=== PATIENT | male | born 1965 | race Caucasian/White ===

== ENCOUNTER 2020-09-01 20:57 | Emergency (ER) | payer OTHER ==
[~2020-09-01] VITALS: Ht 180.3 cm; Wt 106.6 kg
[2020-09-01 21:16] VITALS: BP 168/116
== END 2020-09-02 09:00 | disposition left against medical advice (07) ==
LOC: ER 20:57
DX: I10 Essential (primary) hypertension (principal); Z53.21 Procedure and treatment not carried out due to patient leaving prior to being seen by health care provider
CPT/HCPCS: 93005

== ENCOUNTER 2021-05-03 23:27 | Inpatient (IN) | payer OTHER ==
[~2021-05-03] VITALS: Ht 180.3 cm; Wt 98.5 kg
[~2021-05-03 23:27] MED LIST: AMLO-496 PO; APIX5TAB PO; HYDR-4902 PO
[2021-05-04 01:46] LABS: Basophils # (auto) 0.1 10 ^3/uL (0-0.2); Basophils % (auto) 1.5 % (0.0-2.0); Eosinophils # (auto) 0.3 10 ^3/uL (0-0.8); Eosinophils % (auto) 4.8 % (0.0-7.0); Hematocrit 39.1 % (41.0-53.0); Hemoglobin 13.8 g/dL (13.5-17.5); Lymphocytes % (auto) 36.5 % (10.0-50.0); Mean Corpuscular Hemoglobin 28.7 pg (28.0-32.0); Mean Corpuscular Hgb Conc. 35.3 g/dL (32.0-36.0); Mean Corpuscular Volume 81.3 fL (80.0-100.0); Monocytes # (auto) 0.6 10 ^3/uL (0-1.3); Monocytes % (auto) 11.5 % (0.0-12.0); Neutrophils # (auto) 2.4 10 ^3/uL (1.6-8.6); Neutrophils % (auto) 45.7 % (37.0-80.0); Nucleated Red Blood Cells % 0.1 %; Red Blood Cells 4.81 10^6/uL (4.5-5.90); Red Cell Distribution Width 13.5 % (11.8-14.3); White Blood Cell 5.3 10^3/uL (4.4-10.8)
[2021-05-04 02:04] LABS: Albumin 3.2 g/dL (3.4-5.0); BUN/Creatinine Ratio 13.6; Bilirubin, Total 0.2 mg/dL (0.2-1.0)
[2021-05-04 04:54] LABS: Urine Bacteria NONE SEEN /hpf (None Seen); Urine Blood Negative /uL (Negative); Urine Hyaline Cast FEW /lpf (0 - 2); Urine Mucus FEW (None Seen); Urine Specific Gravity 1.029 (1.001-1.035); Urine WBC 3 /hpf (0 - 3)
[2021-05-04] MEDS ORDERED: IOHEXOL 300 MG/ML 100ML BOTTLE IJ ONE ×2 (05:41→07:47)
[2021-05-04] MEDS ORDERED: metroNIDAZOLE 500MG/100ML 100 ML IV ONE (10:45)
[2021-05-04] MEDS ORDERED: cefTRIAXone 1GM/50ML D5W 50 ML IV ONE (10:45)
[2021-05-04] MEDS ORDERED: ONDANSETRON HCL 4 MG/2 ML VIAL IV ONE (11:00)
[2021-05-04] MEDS ORDERED: SODIUM CHLORIDE 0.9% 500 ML IV ONE (11:00)
[2021-05-04] MEDS ORDERED: MORPHINE SULFATE 4 MG/ML SYR/VIAL IV ONE (11:00)
[2021-05-04] MEDS ORDERED: NITROGLYCERIN 0.4 MG SL TAB SL PRN (11:15)
[2021-05-04] MEDS ORDERED: ACETAMINOPHEN 500 MG TAB PO PRN (11:15)
[2021-05-04] MEDS ORDERED: MORPHINE SULFATE INJECTION 2 MG/ML SYRG IV PRN (11:15)
[2021-05-04 11:53] LABS: INR 1.07 (0.9-1.15); Partial Thromboplastin Time 32.2 sec (23.6-33.0)
[2021-05-04] MEDS: D5W/SOD CHLO 0.9% 1,000 ML IV SCH ×2 (11:59→19:53)
[2021-05-04] MEDS ORDERED: GOLYTELY 4L KIT PO ONE (13:00)
[2021-05-04 15:05] LABS: Hematocrit 38.1 % (41.0-53.0); Hemoglobin 13.4 g/dL (13.5-17.5)
[2021-05-04 19:01] LABS: Hematocrit 38.7 % (41.0-53.0); Hemoglobin 13.1 g/dL (13.5-17.5)
[2021-05-04 19:55] VITALS: BP 139/92
[2021-05-04 20:30] VITALS: BP 139/92
[2021-05-04] MEDS: CIPROFLOXACIN 400MG/200ML 200 ML IV SCH (21:17)
[2021-05-04] MEDS: metroNIDAZOLE 500MG/100ML 100 ML IV SCH (22:27)
[2021-05-05 00:55] LABS: Hematocrit 36.2 % (41.0-53.0); Hemoglobin 12.7 g/dL (13.5-17.5)
[2021-05-05] MEDS: D5W/SOD CHLO 0.9% 1,000 ML IV SCH ×3 (04:00→19:15)
[2021-05-05 05:00] VITALS: BP 148/89
[2021-05-05] MEDS: metroNIDAZOLE 500MG/100ML 100 ML IV SCH ×3 (05:55→22:03)
[2021-05-05] MEDS ORDERED: GOLYTELY 4L KIT PO ONE ×2 (06:00→08:30)
[2021-05-05 09:00] VITALS: BP 130/78
[2021-05-05] MEDS ORDERED: SODIUM CHLORIDE LOCK 10 ML ONE (09:10)
[2021-05-05] MEDS ORDERED: diphenhdrAMINE HCL 50 MG/1 ML VL ONE (09:10)
[2021-05-05] MEDS: CIPROFLOXACIN 400MG/200ML 200 ML IV SCH ×2 (10:25→20:41)
[2021-05-05 13:00] VITALS: BP 141/92
[2021-05-05 16:32] VITALS: BP 149/90
[2021-05-05] MEDS: MIDAZOLAM HCL 5 MG/ML-1ML VIAL ONE ×4 (18:25→18:47)
[2021-05-05] MEDS: fentaNYL CITRATE 100 MCG/2 ML VL ONE ×3 (18:25→18:31)
[2021-05-05] MEDS: MORPHINE SULFATE INJECTION 2 MG/ML SYRG IV PRN (20:18)
[2021-05-05 22:00] VITALS: BP 120/63
[2021-05-06] MEDS: D5W/SOD CHLO 0.9% 1,000 ML IV SCH ×3 (03:40→17:59)
[2021-05-06 05:04] VITALS: BP 131/80
[2021-05-06] MEDS: metroNIDAZOLE 500MG/100ML 100 ML IV SCH ×3 (05:44→21:47)
[2021-05-06 05:52] LABS: Basophils # (auto) 0 10 ^3/uL (0-0.2); Basophils % (auto) 0.8 % (0.0-2.0); Eosinophils # (auto) 0.1 10 ^3/uL (0-0.8); Eosinophils % (auto) 3.5 % (0.0-7.0); Hematocrit 35.5 % (41.0-53.0); Hemoglobin 12.3 g/dL (13.5-17.5); Lymphocytes # (auto) 1.3 10 ^3/uL (0.4-5.4); Lymphocytes % (auto) 33.6 % (10.0-50.0); Mean Corpuscular Hemoglobin 28.1 pg (28.0-32.0); Mean Corpuscular Hgb Conc. 34.5 g/dL (32.0-36.0); Mean Corpuscular Volume 81.4 fL (80.0-100.0); Monocytes # (auto) 0.5 10 ^3/uL (0-1.3); Neutrophils # (auto) 1.9 10 ^3/uL (1.6-8.6); Neutrophils % (auto) 50.1 % (37.0-80.0); Red Blood Cells 4.36 10^6/uL (4.5-5.90); Red Cell Distribution Width 13.1 % (11.8-14.3); White Blood Cell 3.8 10^3/uL (4.4-10.8)
[2021-05-06] MEDS ORDERED: GOLYTELY 4L KIT PO ONE (06:00)
[2021-05-06 09:09] VITALS: BP 122/75
[2021-05-06] MEDS: CIPROFLOXACIN 400MG/200ML 200 ML IV SCH ×2 (10:11→20:31)
[2021-05-06 10:47] LABS: INR 1.11 (0.9-1.15)
[2021-05-06] MEDS: MORPHINE SULFATE INJECTION 2 MG/ML SYRG IV PRN ×2 (12:38→20:29)
[2021-05-06 13:00] VITALS: BP 132/93
[2021-05-06 17:02] VITALS: BP 142/90
[2021-05-06 22:00] VITALS: BP 126/81
[2021-05-07] MEDS: D5W/SOD CHLO 0.9% 1,000 ML IV SCH ×2 (03:30→11:15)
[2021-05-07 05:00] VITALS: BP 123/74
[2021-05-07] MEDS: metroNIDAZOLE 500MG/100ML 100 ML IV SCH ×3 (05:53→21:46)
[2021-05-07] MEDS: CIPROFLOXACIN 400MG/200ML 200 ML IV SCH ×2 (08:25→20:02)
[2021-05-07 09:00] VITALS: BP 151/95
[2021-05-07 12:44] VITALS: BP 113/68
[2021-05-07] MEDS: MORPHINE SULFATE INJECTION 2 MG/ML SYRG IV PRN ×2 (15:58→20:28)
[2021-05-07 17:14] VITALS: BP 141/85
[2021-05-07] MEDS: ONDANSETRON HCL 4 MG/2 ML VIAL IV PRN (20:27)
[2021-05-07 22:00] VITALS: BP 154/90
[2021-05-08] MEDS: D5W/SOD CHLO 0.9% 1,000 ML IV SCH ×4 (03:36→20:35)
[2021-05-08 05:00] VITALS: BP 121/74
[2021-05-08] MEDS: metroNIDAZOLE 500MG/100ML 100 ML IV SCH ×3 (05:36→22:06)
[2021-05-08] MEDS: MORPHINE SULFATE INJECTION 2 MG/ML SYRG IV PRN (05:36)
[2021-05-08] MEDS: ONDANSETRON HCL 4 MG/2 ML VIAL IV PRN (05:36)
[2021-05-08 06:05] LABS: Basophils # (auto) 0 10 ^3/uL (0-0.2); Basophils % (auto) 0.9 % (0.0-2.0); Eosinophils # (auto) 0.1 10 ^3/uL (0-0.8); Eosinophils % (auto) 2.7 % (0.0-7.0); Hematocrit 36.7 % (41.0-53.0); Lymphocytes # (auto) 1.4 10 ^3/uL (0.4-5.4); Lymphocytes % (auto) 30.2 % (10.0-50.0); Mean Corpuscular Hemoglobin 28.5 pg (28.0-32.0); Mean Corpuscular Hgb Conc. 35.4 g/dL (32.0-36.0); Mean Corpuscular Volume 80.4 fL (80.0-100.0); Monocytes # (auto) 0.6 10 ^3/uL (0-1.3); Monocytes % (auto) 13.3 % (0.0-12.0); Neutrophils # (auto) 2.5 10 ^3/uL (1.6-8.6); Neutrophils % (auto) 52.9 % (37.0-80.0); Nucleated Red Blood Cells % 0.1 %; Red Blood Cells 4.57 10^6/uL (4.5-5.90); Red Cell Distribution Width 13.3 % (11.8-14.3); White Blood Cell 4.7 10^3/uL (4.4-10.8)
[2021-05-08 06:21] LABS: INR 1.13 (0.9-1.15); Partial Thromboplastin Time 31.6 sec (23.6-33.0)
[2021-05-08 06:23] LABS: Potassium 3.5 mmol/L (3.5-5.1)
[2021-05-08 06:28] LABS: BUN/Creatinine Ratio 3.3; Calcium 8.5 mg/dL (8.5-10.1)
[2021-05-08] MEDS: CIPROFLOXACIN 400MG/200ML 200 ML IV SCH ×2 (07:22→20:35)
[2021-05-08 09:00] VITALS: BP 124/84
[2021-05-08 13:00] VITALS: BP 128/82
[2021-05-08 17:00] VITALS: BP_SYST 128; BP_SYST 136; BP_DIAS 70; BP_DIAS 77
[2021-05-08 22:00] VITALS: BP 128/72
[2021-05-09] MEDS: D5W/SOD CHLO 0.9% 1,000 ML IV SCH ×4 (03:54→19:28)
[2021-05-09 05:00] VITALS: BP 142/84
[2021-05-09] MEDS: metroNIDAZOLE 500MG/100ML 100 ML IV SCH ×3 (05:31→21:56)
[2021-05-09] MEDS: CIPROFLOXACIN 400MG/200ML 200 ML IV SCH ×2 (08:01→20:51)
[2021-05-09 09:11] VITALS: BP 129/69
[2021-05-09] MEDS ORDERED: LIDOCAINE W/ EPINEPHRINE 1% 20ML VIAL ONE (12:43)
[2021-05-09] MEDS ORDERED: BUPIVACAINE 0.25% INJ 50ML VIAL ONE (12:43)
[2021-05-09] MEDS ORDERED: SUCCINYLCHOLINE CHLORIDE 20 MG/ML 10ML VIAL IV ONE (12:46)
[2021-05-09] MEDS ORDERED: fentaNYL CITRATE 100 MCG/2 ML VL ONE (12:47)
[2021-05-09] MEDS ORDERED: MIDAZOLAM HCL 2MG/2ML 2ml VIAL (1mg/ml) ONE (12:47)
[2021-05-09] MEDS ORDERED: PROPOFOL 10 MG/ML 20 ML IV ONE ×2 (12:51→14:16)
[2021-05-09] MEDS ORDERED: LIDOCAINE 2% (LOCAL ANESTH.) PF 5ml SDV ONE (12:51)
[2021-05-09] MEDS ORDERED: ONDANSETRON HCL 4 MG/2 ML VIAL ONE (12:51)
[2021-05-09 13:00] VITALS: BP 133/87
[2021-05-09] MEDS ORDERED: GELATIN 1 SPONGE SIZE 50 TOP ONE (13:23)
[2021-05-09] MEDS ORDERED: THROMBIN (BOVINE) 5000 UNIT SOL VIAL ONE (13:24)
[2021-05-09] MEDS ORDERED: ONDANSETRON HCL 4 MG/2 ML VIAL IV PRN (14:30)
[2021-05-09] MEDS ORDERED: HYDROmorphone HCL 2 MG/ML VL IV PRN ×2 (14:30)
[2021-05-09] MEDS: HYDROmorphone HCL 2 MG/ML VL IV PRN ×3 (15:25→22:30)
[2021-05-09 17:00] VITALS: BP 120/80
[2021-05-09 22:00] VITALS: BP 144/90
[2021-05-10] MEDS: HYDROcodone-ACET 5/325MG TAB PO PRN ×5 (00:14→15:52)
[2021-05-10] MEDS: ONDANSETRON HCL 4 MG/2 ML VIAL IV PRN ×2 (01:47→04:50)
[2021-05-10] MEDS: HYDROmorphone HCL 2 MG/ML VL IV PRN ×3 (01:47→09:20)
[2021-05-10 04:59] VITALS: BP 146/99
[2021-05-10] MEDS: metroNIDAZOLE 500MG/100ML 100 ML IV SCH ×2 (05:30→13:33)
[2021-05-10] MEDS: D5W/SOD CHLO 0.9% 1,000 ML IV SCH (06:18)
[2021-05-10 08:00] VITALS: BP 142/90
[2021-05-10] MEDS: CIPROFLOXACIN 400MG/200ML 200 ML IV SCH (09:00)
[2021-05-10 12:00] VITALS: BP 145/78
[2021-05-10 16:00] VITALS: BP 148/98
[2021-05-10 17:43] VITALS: BP 148/98
== END 2021-05-10 18:45 | disposition home or self-care (01) | DRG 349 ==
LOC: ER 23:27 → TELE 05-04 11:10 → TELE-CENTR 05-04 19:55 → CENTRAL 05-10 16:24 → TELE-CENTR 05-10 16:28
PROVIDERS: ADMIT Hospitalist; ATTEND Hospitalist
PROC: 0DBP8ZX Excision of Rectum, Via Natural or Artificial Opening Endoscopic, Diagnostic (ICD-10-PCS; principal; 2021-05-05 18:16)
PROC: 06BY0ZC Excision of Hemorrhoidal Plexus, Open Approach (ICD-10-PCS; 2021-05-09)
DX: K64.8 Other hemorrhoids (principal); I10 Essential (primary) hypertension; Z20.822 Contact with and (suspected) exposure to COVID-19; Z53.9 Procedure and treatment not carried out, unspecified reason; Z88.8 Allergy status to other drugs, medicaments and biological substances
CPT/HCPCS: 36415; 45380; 71045; 74177; 80048; 80053; 81001; 83690; 85014; 85018; 85025; 85610; 85730; 86850; 86900; 86901; 87045; 87426; 87427; 93005; 96365; 96368; 96375; G0378; J0330; J0696; J2001; J2250; J2405; J2704; J3490; J7042

== ENCOUNTER 2021-06-13 06:19 | Inpatient (IN) | payer OTHER ==
[~2021-06-13] VITALS: Ht 180.3 cm; Wt 106.9 kg
[~2021-06-13 06:19] MED LIST changes: -APIX5TAB PO
[2021-06-13] MEDS ORDERED: ceFAZolin 1GM/50ML 100 ML IV ONE (06:37)
[2021-06-13] MEDS ORDERED: TRANEXAMIC ACID 20 ML ONE (07:11)
[2021-06-13] MEDS ORDERED: EPINEPHrine HCL 1 MG/1 ML AMP ONE (07:11)
[2021-06-13] MEDS ORDERED: TETRACAINE 1% INJ 2 ML VIAL IJ ONE (07:11)
[2021-06-13] MEDS ORDERED: VANCOMYCIN HCL 1000 MG VL ONE (07:21)
[2021-06-13] MEDS ORDERED: MEPERIDINE HCL (25 MG/ML) 1ML VIAL ONE (07:25)
[2021-06-13] MEDS ORDERED: MIDAZOLAM HCL 2MG/2ML 2ml VIAL (1mg/ml) ONE ×2 (07:25→07:27)
[2021-06-13] MEDS ORDERED: fentaNYL CITRATE 100 MCG/2 ML VL ONE (07:25)
[2021-06-13] MEDS ORDERED: DexAMETHasone SOD PHOS 10MG/1ML VIAL INJ ONE (07:27)
[2021-06-13] MEDS ORDERED: PROPOFOL 10 MG/ML 20 ML IV ONE (07:27)
[2021-06-13] MEDS ORDERED: ePHEDrine SULFATE 50 MG/ML AMP IV PRN (08:45)
[2021-06-13] MEDS ORDERED: MIDAZOLAM HCL 2MG/2ML 2ml VIAL (1mg/ml) IV PRN (08:45)
[2021-06-13] MEDS ORDERED: ONDANSETRON HCL 4 MG/2 ML VIAL IV PRN (08:45)
[2021-06-13] MEDS ORDERED: LABETALOL HCL 5 MG/ML 4ML SYRINGE IV PRN (08:45)
[2021-06-13] MEDS ORDERED: HYDROmorphone HCL 2 MG/ML VL IV PRN (08:45)
[2021-06-13] MEDS ORDERED: MORPHINE SULFATE 4 MG/ML SYR/VIAL IV PRN (08:45)
[2021-06-13] MEDS ORDERED: MORPHINE SULFATE INJECTION 2 MG/ML SYRG IV PRN (09:45)
[2021-06-13] MEDS ORDERED: NITROGLYCERIN 0.4 MG SL TAB SL PRN (09:45)
[2021-06-13] MEDS ORDERED: ACETAMINOPHEN 325 MG TAB PO PRN (10:00)
[2021-06-13] MEDS: D5W/LACTATED RINGERS 1,000 ML IV SCH ×2 (10:17→20:00)
[2021-06-13] MEDS: PREGABALIN 25 MG CAP PO SCH ×3 (10:20→21:31)
[2021-06-13] MEDS: ACETAMINOPHEN 325 MG TAB PO SCH ×3 (12:00→22:50)
[2021-06-13] MEDS: KETOROLAC TROMETH 30 MG/ML 1ML VIAL IV SCH ×3 (12:00→22:49)
[2021-06-13 13:16] VITALS: BP 143/94
[2021-06-13] MEDS: oxyCODONE HCL 5MG TAB PO PRN ×3 (13:38→20:48)
[2021-06-13] MEDS: HYDROmorphone HCL 2 MG/ML VL IV PRN ×2 (13:45→18:34)
[2021-06-13] MEDS: ceFAZolin 2 GM in D5W 5% 100 ML IV SCH ×2 (14:39→21:30)
[2021-06-13 17:09] VITALS: BP 161/107
[2021-06-13] MEDS ORDERED: hydrALAZINE HCL 20 MG/ML VL IV PRN (18:45)
[2021-06-13] MEDS ORDERED: HYDROcodone-ACET 5/325MG TAB PO SCH (18:45)
[2021-06-13 22:00] VITALS: BP 156/100
[2021-06-14] MEDS: oxyCODONE HCL 5MG TAB PO PRN ×4 (02:20→15:35)
[2021-06-14 05:00] VITALS: BP 137/87
[2021-06-14] MEDS: D5W/LACTATED RINGERS 1,000 ML IV SCH ×2 (06:14→16:00)
[2021-06-14] MEDS: ACETAMINOPHEN 325 MG TAB PO SCH ×2 (06:40→12:53)
[2021-06-14] MEDS: KETOROLAC TROMETH 30 MG/ML 1ML VIAL IV SCH ×2 (06:40→12:52)
[2021-06-14] MEDS: PREGABALIN 25 MG CAP PO SCH (08:22)
[2021-06-14 09:00] VITALS: BP 148/88
[2021-06-14] MEDS ORDERED: ENOXAPARIN SOD 30 MG/0.3 ML SYRINGE SC SCH (10:00)
[2021-06-14] MEDS ORDERED: amLODIPine BESYLATE 5 MG TAB PO SCH (10:00)
[2021-06-14 13:00] VITALS: BP 142/88
[2021-06-14 16:00] VITALS: BP 142/88
== END 2021-06-14 16:47 | disposition home or self-care (01) | DRG 489 ==
LOC: SUR 06:19 → OVERFLOW 09:38 → WEST WING 12:25
PROVIDERS: ADMIT Orthopaedic Surgery; ATTEND Orthopaedic Surgery
PROC: 0SUV09Z Supplement Right Knee Joint, Tibial Surface with Liner, Open Approach (ICD-10-PCS; 2021-06-13)
PROC: 0SPC09Z Removal of Liner from Right Knee Joint, Open Approach (ICD-10-PCS; principal; 2021-06-13 07:34)
DX: T84.022A Instability of internal right knee prosthesis, initial encounter (principal); Y83.8 Other surgical procedures as the cause of abnormal reaction of the patient, or of later complication, without mention of misadventure at the time of the procedure; Y92.098 Other place in other non-institutional residence as the place of occurrence of the external cause; Z20.822 Contact with and (suspected) exposure to COVID-19; Z96.651 Presence of right artificial knee joint
CPT/HCPCS: 73560; 87081; G0378; J0171; J0690; J1100; J1885; J2250; J2405; J2704; J7060

== ENCOUNTER 2021-07-11 06:30 | Inpatient (IN) | payer OTHER ==
[~2021-07-11] VITALS: Ht 180.3 cm; Wt 96.2 kg
[2021-07-11] MEDS ORDERED: CLINDAMYCIN 900MG IV 50 ML IV ONE (07:13)
[2021-07-11] MEDS ORDERED: fentaNYL CITRATE 5 ML ONE (07:16)
[2021-07-11] MEDS ORDERED: MIDAZOLAM HCL 2MG/2ML 2ml VIAL (1mg/ml) ONE (07:16)
[2021-07-11] MEDS ORDERED: NITROGLYCERIN 0.4 MG SL TAB SL PRN (08:45)
[2021-07-11] MEDS ORDERED: ACETAMINOPHEN 325 MG TAB PO PRN (08:45)
[2021-07-11] MEDS ORDERED: ONDANSETRON HCL 4 MG/2 ML VIAL IV PRN (08:45)
[2021-07-11] MEDS ORDERED: oxyCODONE HCL 5MG TAB PO PRN ×2 (08:45)
[2021-07-11] MEDS ORDERED: MORPHINE SULFATE INJECTION 2 MG/ML SYRG IV PRN (08:45)
[2021-07-11] MEDS: HYDROmorphone HCL 2 MG/ML VL IV PRN ×6 (08:51→21:01)
[2021-07-11] MEDS ORDERED: ENOXAPARIN SOD 30 MG/0.3 ML SYRINGE SC SCH (10:00)
[2021-07-11] MEDS: D5W/LACTATED RINGERS 1,000 ML IV SCH ×2 (10:00→18:45)
[2021-07-11] MEDS: amLODIPine BESYLATE 5 MG TAB PO SCH (10:25)
[2021-07-11] MEDS: KETOROLAC TROMETH 30 MG/ML 1ML VIAL IV SCH ×3 (12:07→23:37)
[2021-07-11] MEDS: ACETAMINOPHEN 325 MG TAB PO SCH ×3 (12:20→23:38)
[2021-07-11] MEDS ORDERED: CEFOXITIN IV ONE (13:43)
[2021-07-11] MEDS: ceFAZolin 2 GM in D5W 5% 100 ML IV SCH ×2 (13:50→21:31)
[2021-07-11] MEDS ORDERED: ceFAZolin 1GM/50ML 100 ML IV ONE (14:03)
[2021-07-11 15:45] VITALS: BP 145/91
[2021-07-11 22:00] VITALS: BP 137/83
[2021-07-12] MEDS: HYDROmorphone HCL 2 MG/ML VL IV PRN ×3 (04:13→20:32)
[2021-07-12] MEDS: D5W/LACTATED RINGERS 1,000 ML IV SCH ×2 (04:43→14:45)
[2021-07-12 05:00] VITALS: BP 155/99
[2021-07-12] MEDS: KETOROLAC TROMETH 30 MG/ML 1ML VIAL IV SCH ×3 (06:03→18:05)
[2021-07-12] MEDS: ACETAMINOPHEN 325 MG TAB PO SCH ×3 (06:03→18:05)
[2021-07-12] MEDS: ceFAZolin 2 GM in D5W 5% 100 ML IV SCH ×3 (06:04→21:29)
[2021-07-12 09:00] VITALS: BP 131/90
[2021-07-12] MEDS: amLODIPine BESYLATE 5 MG TAB PO SCH (10:23)
[2021-07-12] MEDS: ENOXAPARIN SOD 30 MG/0.3 ML SYRINGE SC SCH ×2 (10:24→21:29)
[2021-07-12 13:00] VITALS: BP 130/82
[2021-07-12 16:53] VITALS: BP 136/83
[2021-07-12 22:11] VITALS: BP 139/79
[2021-07-13] MEDS: ACETAMINOPHEN 325 MG TAB PO SCH ×3 (01:03→12:00)
[2021-07-13] MEDS: KETOROLAC TROMETH 30 MG/ML 1ML VIAL IV SCH ×3 (01:03→12:00)
[2021-07-13] MEDS: D5W/LACTATED RINGERS 1,000 ML IV SCH ×2 (01:04→10:45)
[2021-07-13 05:13] VITALS: BP 143/90
[2021-07-13] MEDS: ceFAZolin 2 GM in D5W 5% 100 ML IV SCH ×2 (06:10→14:00)
[2021-07-13 08:34] VITALS: BP 146/91
[2021-07-13] MEDS: amLODIPine BESYLATE 5 MG TAB PO SCH (09:09)
[2021-07-13] MEDS: ENOXAPARIN SOD 30 MG/0.3 ML SYRINGE SC SCH (09:10)
[2021-07-13 12:41] VITALS: BP 144/86
[2021-07-13 12:58] VITALS: BP 144/86
== END 2021-07-13 16:30 | disposition home or self-care (01) | DRG 489 ==
LOC: SUR 06:30 → OVERFLOW 08:43 → WEST WING 15:36
PROVIDERS: ADMIT Orthopaedic Surgery; ATTEND Orthopaedic Surgery
PROC: 0S9C0ZZ Drainage of Right Knee Joint, Open Approach (ICD-10-PCS; principal; 2021-07-11 07:36)
DX: M25.461 Effusion, right knee (principal); I10 Essential (primary) hypertension; Z96.651 Presence of right artificial knee joint; Z20.822 Contact with and (suspected) exposure to COVID-19
CPT/HCPCS: 36415; 85652; 86141; 87070; 87075; 87205; 93970; G0378; J0690; J0694; J1885; J2250; J3490; J7060

== ENCOUNTER 2022-10-30 06:22 | Inpatient (IN) | payer OTHER ==
[~2022-10-30] VITALS: Ht 180.3 cm; Wt 114.0 kg
[~2022-10-30 06:22] MED LIST changes: -HYDR-4902 PO
[2022-10-30] MEDS ORDERED: VANCOMYCIN HCL 1000 MG VL ONE (06:47)
[2022-10-30] MEDS ORDERED: CLINDAMYCIN 600MG IV 0 ML IV ONE (07:04)
[2022-10-30] MEDS ORDERED: ceFAZolin 1GM/50ML 100 ML IV ONE (07:19)
[2022-10-30] MEDS ORDERED: MIDAZOLAM HCL 2MG/2ML 2ml VIAL (1mg/ml) ONE (07:27)
[2022-10-30] MEDS ORDERED: ROCURONIUM 10MG/ML 10ML VIAL IV ONE (07:27)
[2022-10-30] MEDS ORDERED: fentaNYL CITRATE 5 ML ONE (07:27)
[2022-10-30] MEDS ORDERED: TRANEXAMIC ACID 20 ML ONE (08:00)
[2022-10-30] MEDS ORDERED: BUPIVACAINE 0.25% INJ 50ML VIAL ONE (08:12)
[2022-10-30] MEDS ORDERED: MORPHINE SULF PF 5 MG/10 ML VIAL ONE (08:13)
[2022-10-30] MEDS ORDERED: KETOROLAC TROMETH 30 MG/ML 1ML VIAL ONE (08:13)
[2022-10-30] MEDS ORDERED: ONDANSETRON HCL 4 MG/2 ML VIAL ONE (09:12)
[2022-10-30] MEDS ORDERED: PROPOFOL 10 MG/ML 20 ML IV ONE (09:12)
[2022-10-30] MEDS ORDERED: LABETALOL HCL 5 MG/ML ML 20ML VIAL IV ONE (09:14)
[2022-10-30] MEDS ORDERED: ONDANSETRON HCL 4 MG/2 ML VIAL IV PRN ×2 (09:15→16:45)
[2022-10-30] MEDS ORDERED: HYDROmorphone HCL 2 MG/ML VL/or syr IV PRN (09:15)
[2022-10-30] MEDS ORDERED: ACETAMINOPHEN 325 MG TAB PO PRN (09:30)
[2022-10-30] MEDS ORDERED: HYDROmorphone HCL 2 MG/ML VL/or syr IV ONE ×4 (09:38→10:25)
[2022-10-30] MEDS ORDERED: HYDROmorphone HCL 2 MG/ML VL/or syr IM ONE (09:45)
[2022-10-30] MEDS ORDERED: oxyCODONE HCL 5MG TAB PO ONE (09:48)
[2022-10-30] MEDS: oxyCODONE HCL 5MG TAB PO PRN ×4 (10:07→20:33)
[2022-10-30 13:30] VITALS: BP 139/84
[2022-10-30] MEDS: D5W/LACTATED RINGERS 1,000 ML IV SCH (15:11)
[2022-10-30] MEDS: ceFAZolin 2 GM in D5W 5% 100 ML IV SCH ×2 (15:35→21:19)
[2022-10-30] MEDS: ACETAMINOPHEN 325 MG TAB PO SCH ×2 (17:29→23:09)
[2022-10-30] MEDS: KETOROLAC TROMETH 30 MG/ML 1ML VIAL IV SCH ×2 (17:30→23:09)
[2022-10-30 17:45] VITALS: BP 130/77
[2022-10-30] MEDS ORDERED: DOCUSATE SOD 100 MG CAP PO PRN (19:00)
[2022-10-30] MEDS: PREGABALIN 25 MG CAP PO SCH (21:18)
[2022-10-30 21:30] VITALS: BP 143/87
[2022-10-31] MEDS: oxyCODONE HCL 5MG TAB PO PRN (02:05)
[2022-10-31 05:00] VITALS: BP 132/82
[2022-10-31] MEDS: ACETAMINOPHEN 325 MG TAB PO SCH (05:14)
[2022-10-31] MEDS: KETOROLAC TROMETH 30 MG/ML 1ML VIAL IV SCH (05:14)
[2022-10-31] MEDS: D5W/LACTATED RINGERS 1,000 ML IV SCH (06:44)
[2022-10-31 08:10] VITALS: BP 126/82
[2022-10-31] MEDS ORDERED: PATIENTS OWN MEDICATION (Amlodipine Besylate 1 TAB) PO SCH (10:00)
[2022-10-31] MEDS ORDERED: ASPirin 81 mg TAB PO SCH (10:00)
[2022-10-31] MEDS ORDERED: amLODIPine BESYLATE 5 MG TAB PO SCH (10:00)
[2022-10-31] MEDS ORDERED: PANTOPRAZOLE 40 MG/10 ML VIAL INJ IV SCH (10:00)
[2022-10-31] MEDS: PREGABALIN 25 MG CAP PO SCH (10:04)
[2022-10-31 10:19] VITALS: BP 126/82
== END 2022-10-31 10:45 | disposition home or self-care (01) | DRG 468 ==
LOC: SUR 06:22 → OVERFLOW 09:34 → WEST WING 14:01
PROVIDERS: ADMIT Orthopaedic Surgery; ATTEND Orthopaedic Surgery
PROC: 0SWC0JZ Revision of Synthetic Substitute in Right Knee Joint, Open Approach (ICD-10-PCS; principal; 2022-10-30 07:25)
DX: M23.51 Chronic instability of knee, right knee (principal); S83.421A Sprain of lateral collateral ligament of right knee, initial encounter; X58.XXXA Exposure to other specified factors, initial encounter; Z96.651 Presence of right artificial knee joint; I10 Essential (primary) hypertension; E66.01 Morbid (severe) obesity due to excess calories; Z68.35 Body mass index [BMI] 35.0-35.9, adult; Z88.1 Allergy status to other antibiotic agents; Z88.5 Allergy status to narcotic agent; Y93.89 Activity, other specified; Y92.89 Other specified places as the place of occurrence of the external cause; Y99.8 Other external cause status
CPT/HCPCS: 73560; 82962; 97163; C9113; G0378; J0690; J1885; J2250; J2405; J2704; J3490; J7042; J7060